=== PATIENT | female | born 1980 | race Caucasian/White ===

== ENCOUNTER 2017-01-10 19:14 | Emergency (ER) | payer OTHER ==
--- NOTE | 2017-01-10 20:58 | ED CLINICAL REPORT ---
Clinical Report - Physicians/Mid Levels [facility] [address] [place] [place] [address] 01/10/2017 19:16 Patient: ANAND WEBB Time Seen: 19:19 Jan 10 2017. Arrived- By private vehicle. HISTORY OF PRESENT ILLNESS Chief Complaint: SORE THROAT. This started just prior to arrival and is still present. Pain described as mild. The patient has had a sore throat. No nasal discharge or congestion, toothache, swollen face or jaw pain. (Patient presents to the ER with a sore throat, since yesterday, with now with white exudate. denies any fevers or chills. Denies exposure to mono.). REVIEW OF SYSTEMS No fever, cough, difficulty breathing, chest pain or nausea. No diarrhea, abdominal pain, headache or joint pain. All systems otherwise negative, except as recorded above. SOCIAL HISTORY Never smoker. No alcohol use or drug use. ADDITIONAL NOTES The nursing notes have been reviewed. PHYSICAL EXAM Vital Signs: 01/10/2017 19:20 BP: 128/82. HR: 88. RR: 89. O2 saturation: 97%. Temp: 98.2 F. Pain level now: 0/10. Appearance: Alert. No acute distress. Head: Normal external inspection. Eyes: Conjunctivae and eyelids normal. ENT: Ears normal. Nose normal. Pharyngeal erythema. Right-sided tonsillar exudate, swelling and erythema. No right tonsillar abscess. No membrane suggesting mononucleosis. Lips normal. No trismus present. Uvula midline. No muffled or hoarse voice. Neck: Trachea midline. No adenopathy. Respiratory: No respiratory distress. Breath sounds normal. No decreased air movement or rhonchi. Skin: Normal skin color. Neuro: Oriented X 3. LABS, X-RAYS, AND EKG Laboratory Tests: Monoscreen: (BARB: 01/10/2017 20:14) ( MsgRcvd 01/10/2017 20:29) Final results Test Result Flag Units (Reference) MONOSCREEN NEGATIVE (NEGATIVE) CBC w Diff: (BARB: 01/10/2017 20:14) ( MsgRcvd 01/10/2017 20:20) Final results Test Result Flag Units (Reference) WHITE BLOOD COUNT 5.8 K/uL (4.5-11.5) RED BLOOD COUNT 3.22 L M/uL (4.00-5.20) HEMOGLOBIN 8.0 L gm/dL (12.0-16.0) HEMATOCRIT 24.6 L % (36.0-46.0) MEAN CELL VOLUME 77 L fL (80-100) MEAN CORPUSCULAR HGB 25 L pg (26-34) MEAN CORPUSCULAR HGB CONC 33 g/dL (31-37) RED CELL DISTRIBUTION WIDTH 15.4 H % (11.6-14.8) PLATELET COUNT 317 K/uL (150-400) NEUTROPHIL % 70.0 % (50-75) LYMPH % 21.2 L % (25-40) MONO % 5.4 % (3-14) EOSINOPHIL % 2.9 % (0-4) BASOPHIL % 0.5 % (0-2) Culture, Strep Screen: (BARB: 01/10/2017 19:30) ( MsgRcvd 01/10/2017 19:47) Final results Test Result Flag Units (Reference) RAPID STREP SCREEN - THROAT DATE: 01/10/17 NEGATIVE SCREEN: RAPID STREP SCREEN NEGATIVE; CONFIRMATION TO FOLLOW . PROGRESS AND PROCEDURES Course of Care: Patient reports history of anemia, but is not new to her. Denies any bleeding. Denies any melena. Patient will follow up with hematology, given a copy of her lab results. At this time rapid strep is negative. We'll culture for gonorrhea. In addition patient with likely viral, however 3 out of 4 Centor criteria, thus we'll treat for possible strep. Pt agrees with plan. 01/10/2017 21:00 BP: 130/85. HR: 87. RR: 12. O2 saturation: 97%. Temp: 98.3 F. Pain level now: 0/10. Patient is stable. Symptoms better. Patient/family counseled. Disposition: Discharged. Condition: good. CLINICAL IMPRESSION Acute pharyngitis Anemia. INSTRUCTIONS (Salt water rinses Culture pending for other CBC w Diff: (BARB: 01/10/2017 20:14) ( MsgRcvd 01/10/2017 20:20) Final results Test Result Flag (Reference) WHITE BLOOD COUNT 5.8 K/uL (4.5-11.5) RED BLOOD COUNT 3.22 L M/uL (4.00-5.20) HEMOGLOBIN 8.0 L gm/dL (12.0-16.0) HEMATOCRIT 24.6 L % (36.0-46.0) MEAN CELL VOLUME 77 L fL (80-100) MEAN CORPUSCULAR HGB 25 L pg (26-34) MEAN CORPUSCULAR HGB CONC 33 g/dL (31-37) RED CELL DISTRIBUTION WIDTH 15.4 H % (11.6-14.8) PLATELET COUNT 317 K/uL (150-400) NEUTROPHIL % 70.0 % (50-75) LYMPH % 21.2 L % (25-40) MONO % 5.4 % (3-14) EOSINOPHIL % 2.9 % (0-4) BASOPHIL % 0.5 % (0-2)). Prescription Medications: Amoxicillin 500 mg tablets: Take 1 orally every 8 hours for 10 days. Dispense thirty (30). No refills. OTC Medications: Take acetaminophen (Tylenol, Datril, etc.) and ibuprofen (Advil, Nuprin, etc.) according to label instructions. Available over the counter. Follow-up: Follow up with your doctor in three days. Understanding of the discharge instructions verbalized. (Electronically signed by Amanda Hernandez P.A.-C 01/10/2017 21:16)
--- NOTE | 2017-01-10 20:58 | ED ORDER SUMMARY ---
..... Patient: ANAND WEBB OrderSheet [facility] VisitID: [id number] [address] [place] [address] 36y, F Registration Date/Time: 01/10/2017 ORDER SHEET Weight: 69.3 kg (stated) Allergies: No Known Drug Allergy GENERAL ORDERS: Culture, Strep Screen Urgent (19:35 01/10/2017 EKoroleva P.A.-C) (Ack 19:53 ALawrence ER Tech1) (20:08 EHassan R.N.) Monoscreen Urgent (20:03 01/10/2017 EKoroleva P.A.-C) (Ack 20:05 ALawrence ER Tech1) (20:08 EHassan R.N.) CBC w Diff Urgent (20:03 01/10/2017 EKoroleva P.A.-C) (Ack 20:05 ALawrence ER Tech1) (20:12 AMcQuoid ER Tech1) Culture, Throat Urgent (20:55 01/10/2017 EKoroleva P.A.-C) (Cancelled: Other20:57 EKoroleva P.A.-C) Culture, Throat (Gonorrhea) Urgent (20:57 01/10/2017 EKoroleva P.A.-C) (Ack 21:07 ALawrence ER Tech1) (21:09 EHassan R.N.) MEDICATION ORDERS: Amoxicillin PO 500 mg (NOW) (20:55 01/10/2017 EKoroleva P.A.-C) (21:06 EHassan R.N.) IV FLUIDS: ORDER SHEET NOTES: [Electronically signed by Amanda HernandezAMiguel-C (21:16 01/10/2017)] [Electronically signed by Dottie Cervantes R.N. (23:05 01/10/2017)] [Electronically locked/signed by Dottie Cervantes R.N. (23:05 01/10/2017)]
--- NOTE | 2017-01-10 20:58 | ED NURSING NOTES ---
Clinical Report - Nurses [place] [address] [place] [address] 01/10/2017 19:16 Patient: ANAND WEBB TRIAGE Triage time 1921. Acuity: LEVEL 4. Alert. No acute distress. ITALO COMA SCORE: Italo Coma Scale: 15- eyes open spontaneously (4); best verbal response- oriented x 4 (5); best motor response- obeys commands (6). --19:26 Dottie Cervantes R.N. 19:20 01/10/17. BP: 128/82 (regular adult cuff) taken on the left arm, via an automated monitor, while sitting. HR: 88. RR: 89. O2 saturation: 97% on room air. Temp: 98.2 F (oral). Pain level now: 0/10. --19:26 Dottie Cervantes R.N. correction to prior entry - 19:20 PM. --20:09 Dottie Cervantes R.N. 19:20 01/10/17. RR: 16. --20:09 Dottie Cervantes R.N. Chief Complaint: NECK PAIN (swollen tonsils). late entry - 19:20 PM. --23:05 Dottie Cervantes R.N. Weight: 69.3 kg stated. Height/Length: 63 inches Per Patient. BMI: 27.1. --19:20 Dottie Cervantes R.N. Medications None. PriLOSEC Oral. --19:23 Dottie Cervantes R.N. CeleXA Oral. --19:23 Dottie Cervantes R.N. Medication/allergy information source: the patient. --19:26 Dottie Cervantes R.N. Allergies No Known Drug Allergy. --19:23 Dottie Cervantes R.N. History Historian: patient. Primary physician (Dr. Benitez). ( PT states having a sore throat and neck, thinks her tonsils are swollen, looked this morning and saw some white spots, denies any fever and chills). Onset. (2 days). No fever, weakness, cough, difficulty breathing or skin rash. Denies muscle aches. Treatment MEDIA ANALYTICS MANAGER: None. PAST MEDICAL HX: Immunizations: up-to-date. Last normal menstrual period- Nov. 1. Para 1. Sexual history - sexually active. No contraception. SOCIAL HX: Never smoker. No alcohol use or drug use. No infectious disease exposure. ABUSE ASSESSMENT: No report of abuse. SELF HARM ASSESSMENT: A self harm assessment was performed. The patient answered "no" to the question "Do you have thoughts of harming or killing yourself?" and "Have you recently had thoughts about harming or killing others?". FALL RISK ASSESSMENT: Fall risk assessment completed. No fall risk identified. NUTRITIONAL RISK ASSESSMENT: The nutritional risk assessment revealed no deficiencies. FUNCTIONAL ASSESSMENT: Functional assessment: no impairments noted. LEARNING NEEDS ASSESSMENT: The learning needs assessment revealed no barriers. SKIN INTEGRITY ASSESSMENT: Skin integrity risk assessment completed. No skin integrity risk identified. --19:26 Dottie Cervantes R.N. ADDITIONAL SURGERIES: no known surgeries. Interventions ID band on patient. --19:26 Dottie Cervantes R.N. PHYSICAL ASSESSMENT Ambulatory to room. GENERAL / NEURO / PSYCH: Alert. Oriented X 4. Appears in no acute distress. RESPIRATORY: Respirations not labored. Breath sounds within normal limits. CVS: Capillary refill less than 2 seconds. GI / : Abdomen soft and nontender. SKIN: Skin intact. Skin is warm and dry. Normal skin turgor. --19:26 Dottie Cervantes R.N. NURSING PROGRESS NOTES The initial plan of care for this patient has been created This plan of care was discussed with the patient. Reassurance given. Two patient identifiers checked. Call light placed in reach. Side rails up x 1. Bed placed in lowest position. Brakes of bed on. --19:27 Dottie Cervantes R.N. 20:14. Checked patient name and birthdate: patient confirmed. Blood samples drawn from the left antecubital space by tech per protocol ; labeled in presence of the patient and sent to lab: rainbow set. --20:12 Linda Barber ER Tech1 21:01 01/10/2017 Amoxicillin PO Capsules 500 mg given. Allergies verified and confirmed 5 rights. --21:06 Dottie Cervantes R.N. DISPOSITION / DISCHARGE Departure time: 2105 PM. Condition at departure: stable. No learning barriers present. Discharge instructions provided and reviewed with the patient. Reviewed warnings (s/s get worst follow up with MD). Reviewed medication(s) side effects, precautions, dosing and course information. Prescription(s) given to the patient. Patient verbalized understanding. Written instructions provided in [place]. No activity restrictions or note given. The patient was discharged by the physician payroll human resources assistant. She was discharged home and unaccompanied at time of discharge. She left the Emergency Department ambulatory and via private vehicle. Patient driving. FALL RISK ASSESSMENT: Fall risk assessment completed. No fall risk identified. --21:08 Dottie Cervantes R.N. 21:00 01/10/17. BP: 130/85 (regular adult cuff) taken on the left arm, via an automated monitor, while sitting. HR: 87. RR: 12. O2 saturation: 97% on room air. Temp: 98.3 F (oral). Pain level now: 0/10. --21:08 Dottie Cervantes R.N. Locked/Released at 01/10/2017 23:05 by Dottie Cervantse R.N.
--- NOTE | 2017-01-10 20:58 | ED ORDER SUMMARY ---
..... Patient: ANAND WEBB OrderSheet [facility] VisitID: [id number] [address] [place] [address] 36y, F Registration Date/Time: 01/10/2017 ORDER SHEET Weight: 69.3 kg (stated) Allergies: No Known Drug Allergy GENERAL ORDERS: Culture, Strep Screen Urgent (19:35 01/10/2017 EKoroleva P.A.-C) (Ack 19:53 ALawrence ER Tech1) (20:08 EHassan R.N.) Monoscreen Urgent (20:03 01/10/2017 EKoroleva P.A.-C) (Ack 20:05 ALawrence ER Tech1) (20:08 EHassan R.N.) CBC w Diff Urgent (20:03 01/10/2017 EKoroleva P.A.-C) (Ack 20:05 ALawrence ER Tech1) (20:12 AMcQuoid ER Tech1) Culture, Throat Urgent (20:55 01/10/2017 EKoroleva P.A.-C) (Cancelled: Other20:57 EKoroleva P.A.-C) Culture, Throat (Gonorrhea) Urgent (20:57 01/10/2017 EKoroleva P.A.-C) (Ack 21:07 ALawrence ER Tech1) (21:09 EHassan R.N.) MEDICATION ORDERS: Amoxicillin PO 500 mg (NOW) (20:55 01/10/2017 EKoroleva P.A.-C) (21:06 EHassan R.N.) IV FLUIDS: ORDER SHEET NOTES: [Electronically signed by Amanda HernandezAMiguel-C (21:16 01/10/2017)] [Electronically signed by Dottie Cervantes R.N. (23:05 01/10/2017)] [Electronically locked/signed by Dottie Cervantes R.N. (23:05 01/10/2017)]
--- NOTE | 2017-01-10 20:58 | ED NURSING NOTES ---
Clinical Report - Nurses [place] [place] [place] [address] 01/10/2017 19:16 Patient: ANAND WEBB TRIAGE Triage time 1921. Acuity: LEVEL 4. Alert. No acute distress. ITALO COMA SCORE: Italo Coma Scale: 15- eyes open spontaneously (4); best verbal response- oriented x 4 (5); best motor response- obeys commands (6). --19:26 Dottie Cervantes R.N. 19:20 01/10/17. BP: 128/82 (regular adult cuff) taken on the left arm, via an automated monitor, while sitting. HR: 88. RR: 89. O2 saturation: 97% on room air. Temp: 98.2 F (oral). Pain level now: 0/10. --19:26 Dottie Cervantes R.N. correction to prior entry - 19:20 PM. --20:09 Dottie Cervantes R.N. 19:20 01/10/17. RR: 16. --20:09 Dottie Cervantes R.N. Chief Complaint: NECK PAIN (swollen tonsils). late entry - 19:20 PM. --23:05 Dottie Cervantes R.N. Weight: 69.3 kg stated. Height/Length: 63 inches Per Patient. BMI: 27.1. --19:20 Dottie Cervantes R.N. Medications None. PriLOSEC Oral. --19:23 Dottie Cervantes R.N. CeleXA Oral. --19:23 Dottie Cervantes R.N. Medication/allergy information source: the patient. --19:26 Dottie Cervantes R.N. Allergies No Known Drug Allergy. --19:23 Dottie Cervantes R.N. History Historian: patient. Primary physician (Dr. Benitez). ( PT states having a sore throat and neck, thinks her tonsils are swollen, looked this morning and saw some white spots, denies any fever and chills). Onset. (2 days). No fever, weakness, cough, difficulty breathing or skin rash. Denies muscle aches. Treatment ASSISTANT DIRECTOR OF ADMISSIONS: None. PAST MEDICAL HX: Immunizations: up-to-date. Last normal menstrual period- Nov. 1. Para 1. Sexual history - sexually active. No contraception. SOCIAL HX: Never smoker. No alcohol use or drug use. No infectious disease exposure. ABUSE ASSESSMENT: No report of abuse. SELF HARM ASSESSMENT: A self harm assessment was performed. The patient answered "no" to the question "Do you have thoughts of harming or killing yourself?" and "Have you recently had thoughts about harming or killing others?". FALL RISK ASSESSMENT: Fall risk assessment completed. No fall risk identified. NUTRITIONAL RISK ASSESSMENT: The nutritional risk assessment revealed no deficiencies. FUNCTIONAL ASSESSMENT: Functional assessment: no impairments noted. LEARNING NEEDS ASSESSMENT: The learning needs assessment revealed no barriers. SKIN INTEGRITY ASSESSMENT: Skin integrity risk assessment completed. No skin integrity risk identified. --19:26 Dottie Cervantes R.N. ADDITIONAL SURGERIES: no known surgeries. Interventions ID band on patient. --19:26 Dottie Cervantes R.N. PHYSICAL ASSESSMENT Ambulatory to room. GENERAL / NEURO / PSYCH: Alert. Oriented X 4. Appears in no acute distress. RESPIRATORY: Respirations not labored. Breath sounds within normal limits. CVS: Capillary refill less than 2 seconds. GI / : Abdomen soft and nontender. SKIN: Skin intact. Skin is warm and dry. Normal skin turgor. --19:26 Dottie Cervantes R.N. NURSING PROGRESS NOTES The initial plan of care for this patient has been created This plan of care was discussed with the patient. Reassurance given. Two patient identifiers checked. Call light placed in reach. Side rails up x 1. Bed placed in lowest position. Brakes of bed on. --19:27 Dottie Cervantes R.N. 20:14. Checked patient name and birthdate: patient confirmed. Blood samples drawn from the left antecubital space by tech per protocol ; labeled in presence of the patient and sent to lab: rainbow set. --20:12 Linda Barber ER Tech1 21:01 01/10/2017 Amoxicillin PO Capsules 500 mg given. Allergies verified and confirmed 5 rights. --21:06 Dottie Cervantes R.N. DISPOSITION / DISCHARGE Departure time: 2105 PM. Condition at departure: stable. No learning barriers present. Discharge instructions provided and reviewed with the patient. Reviewed warnings (s/s get worst follow up with MD). Reviewed medication(s) side effects, precautions, dosing and course information. Prescription(s) given to the patient. Patient verbalized understanding. Written instructions provided in [place] Of [place]. No activity restrictions or note given. The patient was discharged by the physician pediatric physician assistant. She was discharged home and unaccompanied at time of discharge. She left the Emergency Department ambulatory and via private vehicle. Patient driving. FALL RISK ASSESSMENT: Fall risk assessment completed. No fall risk identified. --21:08 Dottie Cervantes R.N. 21:00 01/10/17. BP: 130/85 (regular adult cuff) taken on the left arm, via an automated monitor, while sitting. HR: 87. RR: 12. O2 saturation: 97% on room air. Temp: 98.3 F (oral). Pain level now: 0/10. --21:08 Dottie Cervantes R.N. Locked/Released at 01/10/2017 23:05 by Dottie Cervantes R.N.
--- NOTE | 2017-01-10 23:06 | ED MED RECONCILIATION SUMMARY ---
Patient: ANAND WEBB Medication Reconciliation Report [facility] VisitID: [id number] [address] [place] [address] 36y, F Registration Date/Time: 01/10/2017 Weight: 69.3 kg Height/Length: 63 in. BMI: 27.1 ALLERGIES: No Known Drug Allergy The patient's Home Medications are listed below: THE FOLLOWING MEDICATIONS NEED TO BE RECONCILED: CeleXA Oral PriLOSEC Oral The source(s) of the original Home Medication information: patient The following Medications were given to the patient in the Emergency Department: Amoxicillin [PO] PO 500 mg, administered: 01/10/2017 9:01:00 PM The following Medications were prescribed to the patient: Take acetaminophen (Tylenol, Datril, etc.) and ibuprofen (Advil, Nuprin, etc.) according to label instructions. Available over the counter. -- Amanda Hernandez P.AMiguel-Melquiades Amoxicillin 500 mg tablets: Take 1 orally every 8 hours for 10 days. Dispense thirty (30). No refills. -- Amanda Hernandez, P.A.-C
--- NOTE | 2017-01-10 23:06 | ED MAR SUMMARY ---
..... Medication Administration Record [facility] [address] [place] [address] Patient: ANAND WEBB Visit ID: [id number] 36y, F Weight: 69.3 kg Height/Length: 63 in BMI: 27.1 ALLERGIES: No Known Drug Allergy Given 21:01 01/10/2017 Dottie Cervantes R.N. Medication Administered: AMOXICILLIN [PO], Dose: 500 mg Capsules PO. Medication Ordered: Amoxicillin PO 500 mg (NOW).
--- NOTE | 2017-01-10 23:06 | ED DISCHARGE INSTRUCTIONS ---
Patient: ANAND WEBB General Instructions [facility] VisitID: [id number] [address] [place] [address] 36y, F Registration Date/Time: 01/10/2017 Acute pharyngitis Anemia. INSTRUCTIONS (Salt water rinses Culture pending for other CBC w Diff: (BARB: 01/10/2017 20:14) ( MsgRcvd 01/10/2017 20:20) Final results Test Result Flag (Reference) WHITE BLOOD COUNT 5.8 K/uL (4.5-11.5) RED BLOOD COUNT 3.22 L M/uL (4.00-5.20) HEMOGLOBIN 8.0 L gm/dL (12.0-16.0) HEMATOCRIT 24.6 L % (36.0-46.0) MEAN CELL VOLUME 77 L fL (80-100) MEAN CORPUSCULAR HGB 25 L pg (26-34) MEAN CORPUSCULAR HGB CONC 33 g/dL (31-37) RED CELL DISTRIBUTION WIDTH 15.4 H % (11.6-14.8) PLATELET COUNT 317 K/uL (150-400) NEUTROPHIL % 70.0 % (50-75) LYMPH % 21.2 L % (25-40) MONO % 5.4 % (3-14) EOSINOPHIL % 2.9 % (0-4) BASOPHIL % 0.5 % (0-2)). Prescription Medications: Amoxicillin 500 mg tablets: Take 1 orally every 8 hours for 10 days. Dispense thirty (30). No refills. OTC Medications: Take acetaminophen (Tylenol, Datril, etc.) and ibuprofen (Advil, Nuprin, etc.) according to label instructions. Available over the counter. Follow-up: Follow up with your doctor in three days. Understanding of the discharge instructions verbalized. ADDITIONAL INFORMATION Pharyngitis: Strep [Presumed] Your illness has the signs of a strep throat infection. Strep throat is a contagious illness. It is spread by coughing, kissing or by touching others after touching your mouth or nose. Symptoms include throat pain worse with swallowing, aching all over, headache and fever. You will be treated with an antibiotic, which should make you start to feel better within 1-2 days. Home Care: Rest at home and drink plenty of fluids to avoid dehydration. No school or work for the first two days on antibiotics. You will not be contagious after this time, and if you are feeling better, you can return to school or work. Take your antibiotics for a full 10 days, even if you feel better after the first few days of treatment. This is very important to prevent complications from the strep infection (such as heart or kidney disease). Children: Use acetaminophen (Tylenol) for fever, fussiness or discomfort. In infants over six months of age, you may use ibuprofen (Children's Motrin) instead of Tylenol. [NOTE: If your child has chronic liver or kidney disease or ever had a stomach ulcer or GI bleeding, talk with your doctor before using these medicines.] (Aspirin should never be used in anyone under 18 years of age who is ill with a fever. It may cause severe liver damage.) Adults: You may use acetaminophen (Tylenol) or ibuprofen (Motrin, Advil) to control pain or fever, unless another medicine was prescribed for this. [NOTE: If you have chronic liver or kidney disease or ever had a stomach ulcer or GI bleeding, talk with your doctor before using these medicines.] Throat lozenges or sprays (Chloraseptic and others) will reduce pain. Gargling with warm salt water will also reduce throat pain. Dissolve 1/2 teaspoon of salt in 1 glass of warm water. This is especially useful just before meals. Follow Up with your doctor or as directed by our staff if you are not improving over the next week. Get Prompt Medical Attention if any of the following occur: Fever over 100.5F (38.0C) oral, or over 101.5F (38.6C) rectal for more than three days New or worsening ear pain, sinus pain or headache Painful lumps in the back of your neck Unable to swallow liquids or open your mouth wide due to throat pain Trouble breathing or noisy breathing Muffled voice New rash You have been given the following additional information: Pharyngitis, Strep (Presumed) (Electronically signed by Amanda Hernandez P.A.-C 01/10/2017 21:16)
--- NOTE | 2017-01-10 23:06 | ED MED RECONCILIATION SUMMARY ---
Patient: ANAND WEBB Medication Reconciliation Report [facility] VisitID: [id number] [address] [place] [address] 36y, F Registration Date/Time: 01/10/2017 Weight: 69.3 kg Height/Length: 63 in. BMI: 27.1 ALLERGIES: No Known Drug Allergy The patient's Home Medications are listed below: THE FOLLOWING MEDICATIONS NEED TO BE RECONCILED: CeleXA Oral PriLOSEC Oral The source(s) of the original Home Medication information: patient The following Medications were given to the patient in the Emergency Department: Amoxicillin [PO] PO 500 mg, administered: 01/10/2017 9:01:00 PM The following Medications were prescribed to the patient: Take acetaminophen (Tylenol, Datril, etc.) and ibuprofen (Advil, Nuprin, etc.) according to label instructions. Available over the counter. -- Amanda Hernandez P.AMiguel-Melquiades Amoxicillin 500 mg tablets: Take 1 orally every 8 hours for 10 days. Dispense thirty (30). No refills. -- Amanda Hernandez, P.A.-C
--- NOTE | 2017-01-10 23:06 | ED MAR SUMMARY ---
..... Medication Administration Record [facility] [address] [place] [address] Patient: ANAND WEBB Visit ID: [id number] 36y, F Weight: 69.3 kg Height/Length: 63 in BMI: 27.1 ALLERGIES: No Known Drug Allergy Given 21:01 01/10/2017 Dottie Cervantes R.N. Medication Administered: AMOXICILLIN [PO], Dose: 500 mg Capsules PO. Medication Ordered: Amoxicillin PO 500 mg (NOW).
== END 2017-01-10 21:03 | disposition home or self-care (01) ==
LOC: ED SRH 19:14
DX: J02.9 Acute pharyngitis, unspecified (principal); D64.9 Anemia, unspecified
CPT/HCPCS: 90126; 90154; 90159; 90627; 95059; 98370